=== PATIENT | female | born 2000 | race Caucasian/White ===

== ENCOUNTER 2020-04-01 09:24 | Emergency (ER) | payer OTHER ==
[2020-04-01 12:10] VITALS: BP 128/69
== END 2020-04-01 12:10 | disposition home or self-care (01) ==
LOC: ED 09:24
DX: B34.9 Viral infection, unspecified (principal); Z20.828 Contact with and (suspected) exposure to other viral communicable diseases
CPT/HCPCS: 87804; U0003